=== PATIENT | male | born 1985 | race American Indian/Alaskan Native ===

== ENCOUNTER 2019-05-09 05:15 | Emergency (ER) | payer SELFPAY ==
[2019-05-09 05:21] VITALS: BP 132/65
--- NOTE | 2019-05-09 05:45 | Emergency Department Report ---
ED General Adult HPI - General Chief complaint: Skin/Abscess/Foreign Body Stated complaint: ABCESS Time Seen by Provider: 05/09/19 05:34 Source: patient Mode of arrival: Ambulatory Limitations: No Limitations - History of Present Illness Initial comments: The patient is a 33-year-old male who presents to ED complaining of pain in the right side of his mouth x 3 days . The pain is exacerbated by eating and opening of the mouth.Patient states the pain is alleviated initially with pain medication but comes back. Patient describes a as a throbbing, pressure-like sensation. Patient states otherwise well and has no other complaints. Patient has had no fevers and no chills. No chest pain, no shortness of breath. No abdominal pain. No shortness of breath or recent trauma to the face. - Related Data Previous Rx's Medication Instructions Recorded Last Taken Type Clindamycin [Clindamycin CAP] 300 mg PO Q8H #21 cap 05/09/19 Unknown Rx Ibuprofen [Motrin] 800 mg PO Q8HR #30 tablet 05/09/19 Unknown Rx Allergies Allergy/AdvReac Type Severity Reaction Status Date / Time No Known Allergies Allergy Unverified 05/09/19 05:17 ED Review of Systems ROS: Stated complaint: ABCESS Other details as noted in HPI Comment: All other systems reviewed and negative ED Past Medical Hx - Past Medical History Previous Medical History?: No - Surgical History Past Surgical History?: No - Social History Smoking Status: Never Smoker Substance Use Type: Marijuana - Medications Home Medications: Home Medications Medication Instructions Recorded Confirmed Last Taken Type Clindamycin [Clindamycin CAP] 300 mg PO Q8H #21 cap 05/09/19 Unknown Rx Ibuprofen [Motrin] 800 mg PO Q8HR #30 tablet 05/09/19 Unknown Rx ED Physical Exam - General Limitations: No Limitations General appearance: alert, in no apparent distress - Head Head exam: Present: atraumatic, normocephalic - Eye Eye exam: Present: normal appearance - ENT ENT exam: Present: mucous membranes moist - Expanded ENT Exam Expanded Mouth exam: Present: normal external inspection Teeth exam: Present: fractured tooth # (28), dental tenderness # (28, mild gingival swelling underneath tooth #28, no erythema, no drainage.) - Neck Neck exam: Present: normal inspection - Respiratory Respiratory exam: Present: normal lung sounds bilaterally. Absent: respiratory distress - Cardiovascular Cardiovascular Exam: Present: regular rate, normal rhythm. Absent: systolic murmur, diastolic murmur, rubs, gallop - GI/Abdominal GI/Abdominal exam: Present: soft, normal bowel sounds - Rectal Rectal exam: Present: deferred - Extremities Exam Extremities exam: Present: normal inspection - Back Exam Back exam: Present: normal inspection - Neurological Exam Neurological exam: Present: alert, oriented X3 - Psychiatric Psychiatric exam: Present: normal affect, normal mood - Skin Skin exam: Present: warm, dry, intact, normal color. Absent: rash ED Course Vital Signs 05/09/19 05:17 Temperature 98.1 F Pulse Rate 66 Respiratory 18 Rate Blood Pressure 132/65 O2 Sat by Pulse 98 Oximetry ED Medical Decision Making - Medical Decision Making 33-year-old male who presents with odontogenic caries and a small gingival abscess ED course: Odontogenic infection versus ear infection. Based upon history and physical examination, pain is a result of an infection of tooth number 28 and that the pain. Pt has no evidence of acute impending airway compromise. At this point, patient will be discharged home on some antibiotics and pain trial, she will do well with an outpatient course of antibiotics. Follow up with the Dental Clinic as referred Vital signs are normal patient is in no acute distress. Pt had an effect uneventful ED stay Critical care attestation.: If time is entered above; I have spent that time in minutes in the direct care of this critically ill patient, excluding procedure time. ED Disposition Clinical Impression: Pain, dental, Gingival abscess Disposition: DC-01 TO HOME OR SELFCARE Is pt being admited?: No Does the pt Need Aspirin: No Condition: Stable Instructions: Dental Abscess (ED) Additional Instructions: Make sure to follow up with the dentist as discussed. Take all your medications as you've been prescribed. If you have any worsening symptoms or develop new symptoms please return to ED immediately. Prescriptions: Clindamycin [Clindamycin CAP] 300 mg PO Q8H #21 cap Ibuprofen [Motrin] 800 mg PO Q8HR #30 tablet Referrals: [facility] [Outside] - 3-5 Days [facility] [Outside] - 3-5 Days Forms: Accompanied Note, Work/School Release Form(ED) Time of Disposition: 05:52
== END 2019-05-09 05:55 | disposition home or self-care (01) ==
LOC: ED 05:15
DX: K05.219 Aggressive periodontitis, localized, unspecified severity (principal); F12.10 Cannabis abuse, uncomplicated